=== PATIENT | male | born 1960 | race Hispanic/Latino ===

== ENCOUNTER 2018-04-16 08:46 | Emergency (ER) | payer MEDICARE ==
[2018-04-16 09:19] LABS: #Basophils 0.1 thou/uL (0.0-0.2); #Eosinphils 0.4 thou/uL (0.0-0.7); #Lymphocytes 1.4 thou/uL (1.20-3.40); #Monocytes 0.6 thou/uL (0.11-0.59); #Neutrophils 3.3 thou/uL (1.40-6.50); %Basophils 1.2 % (0.0-1.0); %Eosinophils 6.4 % (0.0-10.0); %Monocytes 9.6 % (0.0-10.0); %Neutrophils 57.8 % (42.0-75.0); Hemoglobin 15.8 g/dL (14.0-18.0); Mean Corpuscular HGB CONC 34.3 g/dL (32.0-36.0); Mean Corpuscular Hemoglobin 26.3 pg (27.0-31.0); Mean Corpuscular Volume 76.8 fL (78.0-98.0); Mean Platelet Volume 9.6 fL (7.4-10.4); Platelet Count 132 thou/uL (130-400); RBC Distribution Width 12.4 % (11.5-14.5); Red Blood Cell (RBC) Count 6.01 mill/uL (4.70-6.10); White Blood Cell (WBC) Count 5.7 thou/uL (4.8-10.8)
[2018-04-16 09:26] LABS: ALT (SGPT) 30 U/L (8-55); AST (SGOT) 21 U/L (5-34); Alkaline Phosphatase 85 U/L (40-150); Anion Gap 12 mmol/L (10-20); BUN (Urea Nitrogen) 14 mg/dL (8.4-25.7); Bilirubin, Total 0.5 mg/dL (0.2-1.2); Calc. Creatinine Clearance 0 mL/min (70-130); Calcium 8.9 mg/dL (7.8-10.44); Carbon Dioxide 23 mmol/L (22-29); Chloride 108 mmol/L (98-107); Estimated GFR-MDRD Greater than 90; Globulin 2.8 g/dL (2.4-3.5); Glucose 169 mg/dL (70-105); Potassium 4.1 mmol/L (3.5-5.1); Protein, Total 6.8 g/dL (6.0-8.3); Sodium 139 mmol/L (136-145)
[2018-04-16 09:27] LABS: CKMB 1.3 ng/mL (0-6.6)
--- NOTE | 2018-04-16 19:19 | RAD ---
AP PORTABLE CHEST: 04/16/2018 0848 HOURS FINDINGS: AP portable film shows a normal sized heart and clear lungs. No infiltrate or effusion is seen. The re is no vascular congestion or edema. Trachea is midline. Bony structures are unremarkable. IMPRESSION: No acute thoracic findings. POS: HOME
== END 2018-04-16 10:48 | disposition short-term general hospital (02) ==
LOC: BURERS 08:46
DX: R07.89 Other chest pain (principal); E78.5 Hyperlipidemia, unspecified; I10 Essential (primary) hypertension; J45.909 Unspecified asthma, uncomplicated; Z79.899 Other long term (current) drug therapy
CPT/HCPCS: 71045; 80053; 82553; 84484; 85025; 93005

== ENCOUNTER 2019-01-18 14:26 | Emergency (ER) | payer MEDICARE ==
[2019-01-18] MEDS ORDERED: Aspirin Chewable 81 MG TAB ONE (14:41)
[2019-01-18] MEDS ORDERED: Nitroglycerin 0.4 MG TAB 1 EACH ONE (14:41)
[2019-01-18 14:55] LABS: Hemoglobin 15.1 g/dL (14.0-18.0); Mean Corpuscular Volume 85.2 fL (78.0-98.0); Red Blood Cell (RBC) Count 5.69 mill/uL (4.70-6.10); White Blood Cell (WBC) Count 6.8 thou/uL (4.8-10.8)
[2019-01-18 14:56] LABS: #Basophils 0.1 thou/uL (0.0-0.2); #Eosinphils 0.3 thou/uL (0.0-0.7); #Monocytes 0.5 thou/uL (0.11-0.59); %Eosinophils 4.6 % (0.0-10.0); %Monocytes 6.9 % (0.0-10.0); %Neutrophils 59.4 % (42.0-75.0); MDiff Complete? YES; Manual Diff?? NO; Mean Corpuscular HGB CONC 31.2 g/dL (32.0-36.0); Mean Corpuscular Hemoglobin 26.6 pg (27.0-31.0); Mean Platelet Volume 12.3 fL (7.4-10.4); Platelet Count 123 thou/uL (130-400); RBC Distribution Width 13.2 % (11.5-14.5)
[2019-01-18 15:02] LABS: ALT (SGPT) 26 U/L (8-55); AST (SGOT) 20 U/L (5-34); Albumin 4.3 g/dL (3.5-5.0); Alkaline Phosphatase 87 U/L (40-150); Anion Gap 14 mmol/L (10-20); BUN (Urea Nitrogen) 13 mg/dL (8.4-25.7); Bilirubin, Total 0.5 mg/dL (0.2-1.2); Calc. Creatinine Clearance 0 mL/min (70-130); Calcium 9.2 mg/dL (7.8-10.44); Carbon Dioxide 25 mmol/L (22-29); Chloride 106 mmol/L (98-107); Estimated GFR-MDRD Greater than 90; Globulin 2.7 g/dL (2.4-3.5); Glucose 154 mg/dL (70-105); Sodium 141 mmol/L (136-145)
--- NOTE | 2019-01-18 23:10 | RAD ---
PORTABLE CHEST 01/18/19 An AP portable film at 1456 is compared with an 04/16/18 study. The heart is normal in size and the lungs are clear. There is no acute infiltrate or effusion. There has been no adverse change since the 2018 film. The mediastinum appears normal. IMPRESSION: No acute thoracic finding. POS: HOME
== END 2019-01-18 15:37 | disposition short-term general hospital (02) ==
LOC: BURERS 14:26
DX: R07.89 Other chest pain (principal); I10 Essential (primary) hypertension; Z79.899 Other long term (current) drug therapy
CPT/HCPCS: 36415; 71045; 80053; 84484; 85025; 85379; 93005; 94760

== ENCOUNTER 2022-01-27 12:31 | Outpatient (CLI) | payer MEDICARE | END 2022-01-27 12:32 | disposition home or self-care (01) | LOC: BURRAD 12:31 | PROVIDERS: ATTEND Internal Medicine Rheumatology | DX: M19.011 Primary osteoarthritis, right shoulder (principal); M19.012 Primary osteoarthritis, left shoulder ==

== ENCOUNTER 2024-08-15 08:49 | Outpatient (CLI) | payer MEDICARE | END 2024-08-15 08:50 | disposition home or self-care (01) | LOC: BURRAD 08:49 | PROVIDERS: ATTEND Family Medicine | DX: M25.562 Pain in left knee (principal); M25.361 Other instability, right knee; M17.11 Unilateral primary osteoarthritis, right knee ==